=== PATIENT | male | born 1970 | race Two or more races ===

== ENCOUNTER 2024-02-14 13:38 | Emergency (ER) | payer MEDICAID, OTHER ==
[~2024-02-14] VITALS: Ht 167.6 cm; Wt 76.8 kg
[2024-02-14] MEDS ORDERED: IBU600T PO (15:28)
[2024-02-14 16:17] VITALS: BP 144/70; PULSE 71; RESP 18; TEMP 97.8; O2SAT 96
[2024-02-14] MEDS: KETOROLAC TROMETH 60MG/2ML VIAL IM ONE (16:17)
== END 2024-02-14 18:06 | disposition home or self-care (01) ==
LOC: ER 13:38
DX: M25.774 Osteophyte, right foot (principal)
CPT/HCPCS: 73620; 96372; 99283; J1885